=== PATIENT | female | born 1965 | race Caucasian/White ===

== ENCOUNTER → 2021-08-26 | Outpatient (CLI) | payer BC ==
--- NOTE | 2021-09-03 12:26 | MM ---
Reason for exam: screening (asymptomatic). Last mammogram was performed 5 years ago. History: Patient is postmenopausal. Physical Findings: A clinical breast exam by your physician is recommended on an annual basis and results should be correlated with mammographic findings. MG 3D Screening Mammo W/Cad Bilateral CC and MLO view(s) were taken. Prior study comparison: September 01, 2016, mammogram, performed at [facility] [place]. There are scattered fibroglandular densities. Finding: There is a new, typically benign 4 mm mass located 6 cm from the nipple in the 5-6 o'clock middle position. New finding since September 01, 2016. ASSESSMENT: Incomplete: need additional imaging evaluation, BI-RAD 0 RECOMMENDATION: Special view mammogram of the left breast. If lesion persists on supplemental views, image directed ultrasound is recommended. [facility] will attempt to contact patient to return for supplemental views and ultrasound if indicated.
== END | disposition home or self-care (01) ==
LOC: RADMAMWWP 08:07
PROVIDERS: ATTEND Obstetrics & Gynecology
DX: Z12.31 Encounter for screening mammogram for malignant neoplasm of breast (principal); Z78.0 Asymptomatic menopausal state
CPT/HCPCS: 77063; 77067

== ENCOUNTER → 2021-09-07 | Outpatient (CLI) | payer BC ==
--- NOTE | 2021-09-07 08:48 | MM ---
Reason for exam: additional evaluation requested from abnormal screening. Last mammogram was performed less than 1 month ago. History: Patient is postmenopausal. Took hormonal contraceptives for 1 year beginning at age 16. Physical Findings: Nurse did not find any significant physical abnormalities on exam. MG 3D Work Up W/Cad LT Spot compression CC, spot compression MLO, and LM view(s) were taken of the left breast. Prior study comparison: August 26, 2021, bilateral MG 3d screening mammo w/cad. September 01, 2016, mammogram, [place] [facility] [place] There are scattered fibroglandular densities. No distinct lesion persists. These results were verbally communicated with the patient and result sheet given to the patient on 09/07/21. ASSESSMENT: Negative, BI-RAD 1 RECOMMENDATION: Return to routine screening mammogram schedule for both breasts.
== END | disposition home or self-care (01) ==
LOC: RADMAMWWP 07:43
PROVIDERS: ATTEND Obstetrics & Gynecology
DX: R92.8 Other abnormal and inconclusive findings on diagnostic imaging of breast (principal); Z78.0 Asymptomatic menopausal state
CPT/HCPCS: 77061; 77065

== ENCOUNTER → 2022-12-21 | Outpatient (CLI) | payer BC ==
--- NOTE | 2022-12-22 10:37 | MM ---
Reason for Exam: Screening (asymptomatic). Last mammogram was performed 1 year(s) and 4 month(s) ago. Patient History: Menarche at age 11. First Full-Term at age 17. Left ovary removed at age 44. Right ovary removed at age 44. Hysterectomy at age 44. Postmenopausal. Patient has history of breast feeding. Hormonal Contraceptives for 1 year from age 16 until age 17. Risk Values: Jenny 5 year model risk: 1.0%. NCI Lifetime model risk: 5.5%. Prior Study Comparison: 09/01/2016 Screening Mammogram, [facility] [place]. 08/26/2021 Bilateral Screening Mammogram, [facility]. 09/07/2021 Left Diagnostic Mammogram, [facility]. Tissue Density: There are scattered fibroglandular densities. Findings: Analyzed By CAD. There is no suspicious group of microcalcifications or new suspicious mass in either breast. Benign calcification within the right breast. Chronic nodularity within the left breast. Overall Assessment: Benign, BI-RAD 2 Management: Screening Mammogram of both breasts in 1 year. A clinical breast exam by your physician is recommended on an annual basis and results should be correlated with mammographic findings. Electronically signed and approved by: Luiz Siddiqi D.O.
== END | disposition home or self-care (01) ==
LOC: RADMAMWWP 07:06
PROVIDERS: ATTEND Family Medicine
DX: Z12.31 Encounter for screening mammogram for malignant neoplasm of breast (principal); Z78.0 Asymptomatic menopausal state
CPT/HCPCS: 77067

== ENCOUNTER → 2024-11-01 | Outpatient (CLI) | payer BC ==
--- NOTE | 2024-11-01 08:19 | MM ---
Reason for Exam: Screening (asymptomatic). Last mammogram was performed 1 year(s) and 10 month(s) ago. Patient History: Menarche at age 11. First Full-Term at age 17. Left ovary removed at age 44. Right ovary removed at age 44. Hysterectomy at age 44. Postmenopausal. Patient has history of breast feeding. Hormonal Contraceptives for 1 year from age 16 until age 17. Risk Values: Jenny 5 year model risk: 1.1%. NCI Lifetime model risk: 5.2%. Prior Study Comparison: 08/26/2021 Bilateral Screening Mammogram, [facility]. 09/07/2021 Left Diagnostic Mammogram, [facility]. 12/21/2022 Bilateral MG screening mammo w CAD, [facility]. Tissue Density: The breasts are heterogeneously dense, which may obscure small masses. Findings: Analyzed By CAD. Right breast: There is no suspicious group of microcalcifications or new suspicious mass. Benign-appearing calcifications right breast. Left breast: There is no suspicious group of microcalcifications or new suspicious mass. Overall Assessment: Benign, BI-RAD 2 Management: Screening Mammogram of both breasts in [address] [facility] will attempt to contact patient to return for supplemental views and ultrasound if indicated. Patient should continue monthly self-breast exams. A clinical breast exam by your physician is recommended on an annual basis. This exam should not preclude additional follow-up of suspicious palpable abnormalities. Note on Jenny scores and lifetime risk: 1. A Jenny score greater than 3% is considered moderate risk. If this is the case, consider specialist referral to assess eligibility for a risk reducing agent. 2. If overall lifetime risk for the development of breast cancer is 20% or higher, the patient may qualify for future screening with alternating mammogram and breast MRI. [facility], , 11/01/2024 8:16 AM. Electronically signed and approved by: Dany Wilks DO
== END | disposition home or self-care (01) ==
LOC: RADMAMWWP 07:21
PROVIDERS: ATTEND Family Medicine
DX: Z12.31 Encounter for screening mammogram for malignant neoplasm of breast (principal); R92.333 Mammographic heterogeneous density, bilateral breasts; Z78.0 Asymptomatic menopausal state; Z92.0 Personal history of contraception
CPT/HCPCS: 77063; 77067